=== PATIENT | female | born 1960 | race Caucasian/White ===

== ENCOUNTER 2016-09-09 11:56 | Emergency (ER) | payer BC ==
--- NOTE | 2016-09-09 12:42 | EDM.PDOC ---
ED HPI GENERAL MEDICAL PROBLEM - General Chief Complaint: General Stated Complaint: arm pain Time Seen by Provider: 09/09/16 12:02 Source of Information: Reports: Patient, Family History Limitations: Reports: No Limitations - History of Present Illness INITIAL COMMENTS - FREE TEXT/NARRATIVE: Fell off a horse. Questionable LOC. Tetanus unknown Complains of pain in right wrist and right jaw Also with abrasion on right knee Onset: Today, Sudden Duration: Hour(s): Location: Reports: Face, Upper Extremity, Right, Lower Extremity, Right Quality: Reports: Ache Improves with: Reports: Cold Therapy, Immobilization Worsens with: Reports: Movement Context: Reports: Trauma Right Wrist Pain Score (Numeric/FACES): 5 - Related Data Allergies Allergy/AdvReac Type Severity Reaction Status Date / Time No Known Allergies Allergy Verified 09/09/16 12:09 Home Meds: Home Meds Fish Oil/Brooten-3 Fatty Acids [Fish Oil 1,000 MG] 1 cap PO DAILY 02/18/14 [ History] Magnesium Amino Acid Chelate [Magnesium] 1 tab PO DAILY 02/18/14 [History] Propranolol [Inderal] 60 mg PO DAILY 02/18/14 [History] Vitamin B Complex 1 tab PO DAILY 02/18/14 [History] Vit D3 & K/Berberine HCl/Hops [Ostera] 3 tab PO DAILY 09/09/16 [History] Zinc 50 mg PO DAILY 09/09/16 [History] Past Medical History Musculoskeletal History: Reports: Other (See Below) Other Musculoskeletal History: Fx R wrist - Past Surgical History Musculoskeletal Surgical History: Reports: Other (See Below) Other Musculoskeletal Surgeries/Procedures:: plates in L knees, arthroscopic surgery R knee. Social & Family History - Tobacco Use Smoking Status *Q: Never Smoker Second Hand Smoke Exposure: No - Caffeine Use Caffeine Use: Reports: None ED ROS GENERAL - Review of Systems Review Of Systems: See Below Constitutional: Reports: No Symptoms HEENT: Reports: Other (jaw pain) Respiratory: Reports: No Symptoms Cardiovascular: Reports: No Symptoms GI/Abdominal: Reports: No Symptoms Musculoskeletal: Reports: Arm Pain, Leg Pain, Joint Pain, Joint Swelling Skin: Reports: Wound Neurological: Reports: No Symptoms ED EXAM, GENERAL - Physical Exam Exam: See Below Exam Limited By: No Limitations General Appearance: Mild Distress Throat/Mouth: Other (right jaw line with ecchymosis and swelling) Neck: Supple, Non-Tender Respiratory/Chest: Lungs Clear, Normal Breath Sounds, Chest Non-Tender Cardiovascular: Regular Rate, Rhythm GI/Abdominal: Soft, Non-Tender Back Exam: Normal Inspection Extremities: Joint Swelling, Arm Pain, Limited Range of Motion Skin Exam: Other (abrasion to right knee) Course - Vital Signs Last Recorded V/S: Last Vital Signs Temp 36.7 C 09/09/16 11:58 Pulse 77 09/09/16 11:58 Resp 16 09/09/16 11:58 BP 117/66 09/09/16 11:58 Pulse Ox 100 09/09/16 11:58 - Orders/Labs/Meds Orders: Active Orders 24 hr Category Date Time Status Wrist 2V Rt [CR] Stat Exams 09/09/16 12:02 Taken - Re-Assessments/Exams Free Text/Narrative Re-Assessment/Exam: 09/09/16 12:41 wounds cleaned and dressed Xray: Buckle fracture right wrist Splint placed Departure - Departure Time of Disposition: 13:00 Disposition: Home, Self-Care 01 Clinical Impression: Multiple abrasions, Multiple contusions Wrist fracture, right Qualifiers: Encounter type: initial encounter Fracture type: closed Qualified Code(s): S62.101A - Fracture of unspecified carpal bone, right wrist, initial encounter for closed fracture - Discharge Information Forms: ED Department Discharge Additional Instructions: Wear splint Follow up in clinic for casting Tramadol as prescribed Ice as needed - My Orders Last 24 Hours: My Active Orders 09/09/16 12:02 Wrist 2V Rt [CR] Stat - Assessment/Plan Last 24 Hours: My Active Orders 09/09/16 12:02 Wrist 2V Rt [CR] Stat
[2016-09-09] MEDS ORDERED: Diphtheria,Pertussis(Acell),Tetanus Vaccine 0.5 ML SDV IM ONE (12:45)
[2016-09-09] MEDS ORDERED: Bacitracin Oint 1 GM U/D Packet TOP ONE (12:49)
[2016-09-09 13:37] VITALS: BP 105/64
== END 2016-09-09 13:30 | disposition home or self-care (01) ==
LOC: LL.ED 11:56
DX: S62.101A Fracture of unspecified carpal bone, right wrist, initial encounter for closed fracture (principal); S00.83XA Contusion of other part of head, initial encounter; S80.211A Abrasion, right knee, initial encounter; Z79.899 Other long term (current) drug therapy; Z98.890 Other specified postprocedural states; V80.010A Animal-rider injured by fall from or being thrown from horse in noncollision accident, initial encounter
CPT/HCPCS: 29125; 73100-RT; 90471; 90715; 99283